=== PATIENT | male | born 1995 | race Two or more races ===

== ENCOUNTER 2024-09-28 07:55 | Day surgery (SDC) | payer MEDICAID, SELFPAY ==
[2024-09-27 12:45] VITALS: BMI 28.3
[2024-09-27 13:11] LABS: Basophils % (Auto) 1 % (0-2.5); Eosinophils # (Auto) 0.6 Thou/mm3 (0.0-0.5); Eosinophils % (Auto) 8 % (0-10); Hematocrit 37.7 % (41.0-53.0); Hemoglobin 12.3 g/dL (13.5-16.0); Immature Granulocytes % (Auto) 0 % (0-0); Immature Granulocytes Auto 0.02 Thou/mm3 (0.00-0.00); Lymphocytes % (Auto) 42 % (10-50); Mean Corpuscular HGB Conc 32.6 g/dl (31.0-37.0); Mean Corpuscular Volume 89 fL (80-100); Monocytes # (Auto) 0.8 Thou/mm3 (0.0-0.8); Monocytes % (Auto) 11 % (0-12); Neutrophils # (Auto) 2.8 Thou/mm3 (1.8-7.7); Neutrophils % (Auto) 39 % (37-80); Nucleated Red Blood Cell % 0 /100 WBC (0); Platelet Count 232 Thou/mm3 (140-440); Red Blood Count 4.24 Miln/mm3 (4.50-5.90); White Blood Count 7.3 Thou/mm3 (3.8-10.6)
[2024-09-27 13:26] LABS: Anion Gap 7 (7-16); BUN/Creatinine Ratio 10 Ratio (12-20); Blood Urea Nitrogen 10 mg/dL (9-23); Calcium 9.7 mg/dL (8.3-10.6); Carbon Dioxide 27.9 mMol/L (20.0-31.0); Chloride 103 mMol/L (98-107); Estimated Creatinine Clearance 121.6 mL/min (>60); Glucose 115 mg/dL (74-106); Osmolality,Calculated 275 (275-295); Potassium 3.9 mMol/L (3.4-5.1); Sodium 138 mMol/L (136-145); eGFR > 60 See Note
[2024-09-28] VITALS (7 sets, daily range): BP systolic 105–133; BP diastolic 64–99; PULSE 57–94; RESP 14–19; TEMP 36.6–36.7; O2SAT 97–100; BMI 27.9
--- NOTE | 2024-09-28 11:08 | ESOP_ITS ---
Date of Procedure 09/28/24 Pre Op Diagnosis Right gynecomastia Post Op Diagnosis Right gynecomastia Procedure Simple right mastectomy for gynecomastia Findings Right gynecomastia Procedure Description Patient brought into the operating room in supine position. After administration of general endotracheal anesthesia, patient's right breast prepped and draped in standard surgical manner. After administration of local anesthesia an approximately 3 cm semicircular incision was made above the areolar complex. Circumferential flaps were raised. Underlying breast tissue was excised using electrocautery. The wound was washed and irrigated. Hemostasis was adequate and satisfactory. Subcutaneous tissue closed with interrupted sutures using 2-0 Vicryl and incision was closed with 4-0 Monocryl in subcuticular fashion. Dermabond and sterile pressure dressings applied. Patient tolerated the procedure well. He was extubated, breathing spontaneously and without difficulty and was transferred to postanesthesia care in stable condition. Instruments, needles and sponge counts were reported to be correct x 2. Anesthesia GETA and local Pathology / specimen Other (Right breast tissue) Estimated Blood Loss 5 Condition Stable Disposition PACU Surgeon Fidel Alexander MD Surgical Staff Operation Date: 09/28/24 10:15 Case Staff VIRTUAL REALITY SPECIALIST: Rosalio Riley
--- NOTE | 2024-09-28 11:10 | SUR.PHASEI ---
1110 Patient arrived to recovery resting comfortably in [facility], sleeping and able to arouse, then drifts back to sleep, on oxygen 8L via oxy mask, breathing unlabored, vital signs stable, denies pain, dressing intact to right breast; dermabond, fluffs, medipore tape, no bleeding noted, lung sounds clear upon auscultation, bilateral radial pulses present when palpated, report received from Nery MOREL and Fortino DOSS
--- NOTE | 2024-09-28 12:00 | SUR.PHASEII ---
1200 Patient meets discharge criteria from recovery, awake and alert, breathing unlabored, vital signs stable, denies pain, dressing intact; no bleeding noted, patient ate a jello and drinking water/apple juice, tolerating well, denies nausea, patient assisted with dressing into his clothing by his , discharge instructions given to patient and patient , signed discharge instructions. Patient given all his belongings prior to discharge, transported via wheelchair and left in a private vehicle.
== END 2024-09-28 12:00 | disposition home or self-care (01) ==
PROVIDERS: PCP Family Medicine; Referring Provider Surgery; Visit Provider Surgery
PROC: (CPT 19300; principal; 2024-09-28 10:00)
DX: N62 Hypertrophy of breast (principal)
CPT/HCPCS: 19300; 36415; 80048; 85025; A4649; J0131; J0690; J1885; J2250; J2704; J3010; J3490; Q9968